=== PATIENT | female | born 1935 | race Hispanic/Latino ===

== ENCOUNTER 2017-02-13 11:09 | Outpatient (CLI) | payer MEDICARE ==
--- NOTE | 2017-02-13 14:50 | Mammography Report ---
BILATERAL DIGITAL SCREENING MAMMOGRAM with CAD: 02/13/17 11:09:00 CLINICAL: Routine screening. COMPARISON:02/07/16 FINDINGS: The breasts are heterogeneously dense, which may obscure small masses. No mass, architectural distortion or suspicious calcifications. IMPRESSION: No mammographic evidence of malignancy. BI-RADS CATEGORY: 1 - - Negative RECOMMENDATION: Routine mammographic screening in one year. COMMENT: Patient follow-up letters are generated by our [employer] application.
== END 2017-02-13 11:10 | disposition home or self-care (01) ==
LOC: SPVWC 11:09
PROVIDERS: ATTEND Internal Medicine
DX: Z12.31 Encounter for screening mammogram for malignant neoplasm of breast (principal)
CPT/HCPCS: 77067; G0202

== ENCOUNTER 2017-07-19 10:50 | Outpatient (CLI) | payer MEDICARE ==
--- NOTE | 2017-07-19 16:21 | Mammography Report ---
BONE DEXA:07/19/17 10:50:00 CLINICAL: Postmenopausal. COMPARISON: 01/25/15 TECHNIQUE: Two site bone DEXA performed on an Hologic scanner. FINDINGS: The average BMD of the lumbar spine L1-L4 is 0.899g/cm squared with a T-score of -1.3 and a Z-score of +1.4. This compares to 0.932g/cm squared on the last exam and represents a -3.5% change from the previous baseline. The average BMD of the right hip is 0.665g/cm squared with a T-score of -2.3 and a Z-score of -0.2. This compares to 0.696g/cm squared on the last exam and represents a -4.4% change from the previous baseline. IMPRESSION: 1. WHO classification: Osteopenia with increased fracture risk based on the spine and right hip measurements. 2. A modest decline in both spine and hip BMD compared to the last exam. RECOMMENDATION: Clinical correlation and routine screening. DEFINITIONS: BMD = Bone Mineral Density T-score = BMD related to mean peak bone mass of young adult (mean expressed in Standard Deviation) Z-score = Age matched BMD expressed in SD World Health Organization (WHO) Diagnostic Criteria Normal T-score > -1 SD Osteopenia T-score between -1 and -2.4 SD Osteoporosis T-score -2.5 SD or below NOTE: BMD is not the only risk factor for fracture; also consider factors such as the patient's age, risk of falling, previous osteoporotic fracture, family history of osteoporotic fractures, current smoker, and low body weight. Z-scores are not calculated if >80 years of age.
== END 2017-07-19 10:51 | disposition home or self-care (01) ==
LOC: SPVWC 10:50
PROVIDERS: ATTEND Internal Medicine
DX: M81.8 Other osteoporosis without current pathological fracture (principal); M85.88 Other specified disorders of bone density and structure, other site; Z78.0 Asymptomatic menopausal state
CPT/HCPCS: 77080